=== PATIENT | female | born 1970 | race Caucasian/White ===

== ENCOUNTER 2017-03-08 02:42 | Emergency (ER) | payer OTHER ==
[2017-03-08 03:15] LABS: Urine Bilirubin Negative (NEGATIVE); Urine Blood 250 /ul (NEGATIVE); Urine Ketone Negative (NEGATIVE); Urine Nitrite Negative (NEGATIVE); Urine Protein Negative (NEGATIVE); Urine Urobilinogen Normal (NORMAL)
[2017-03-08] MEDS ORDERED: NORMAL SALINE 1,000 ML IV ONE ×2 (03:16→03:30)
[2017-03-08] MEDS ORDERED: HYDROmorphone HCL 1 MG/ML DISP.SYRIN IV ONE ×3 (03:16→06:07)
[2017-03-08] MEDS ORDERED: ONDANSETRON HCL/PF 2 MG/ML VIAL IV ONE (03:16)
--- NOTE | 2017-03-08 03:20 | ERNOTE ---
ER Female HPI Date of Service: 03/08/17 Stated Complaint: KIDNEY STONE Time Seen by Provider: 03/08/17 03:10 Source: patient Immunizations: IMMUNIZATION HX Immunizations Up to Date Yes History of Influenza Vaccine No Hx Pneumococcal Vaccination No Allergies/Adverse Reactions: Allergies haloperidol [From Haldol] Allergy (Intermediate, Verified 03/08/17 03:02) Other ketorolac [From Toradol] Allergy (Intermediate, Verified 03/08/17 03:02) Other meperidine [From Demerol] Allergy (Intermediate, Verified 03/08/17 03:02) Other metoclopramide [From Reglan] Allergy (Intermediate, Verified 03/08/17 03:02) Other nalbuphine [From Nubain] Allergy (Intermediate, Verified 03/08/17 03:02) Other prochlorperazine [From Compazine] Allergy (Intermediate, Verified 03/08/17 03:02 ) Other promethazine [From Phenergan] Allergy (Intermediate, Verified 03/08/17 03:02) Other tramadol Allergy (Intermediate, Verified 03/08/17 03:02) Other Home Medications: HOME MEDICATIONS Clonazepam 1 mg PO TID PRN 03/08/17 [Last Taken Unknown] Gabapentin 100 mg PO TID 03/08/17 [Last Taken Unknown] Meloxicam [Mobic] 15 mg PO DAILY 03/08/17 [Last Taken Unknown] Metoprolol Succinate 200 mg PO DAILY 03/08/17 [Last Taken Unknown] Omeprazole 20 mg PO DAILY 03/08/17 [Last Taken Unknown] Ondansetron HCl [Zofran] 4 mg PO PRN PRN 03/08/17 [Last Taken Unknown] Oxybutynin Chloride [Ditropan Xl] 15 mg PO DAILY 03/08/17 [Last Taken Unknown] Tamsulosin HCl [Flomax] 0.4 mg PO DAILY 03/08/17 [Last Taken Unknown] Venlafaxine HCl [Venlafaxine HCl ER] 37.5 mg PO HS 03/08/17 [Last Taken Unknown] - History of Present Illness Narrative: This is a 46-year-old female who says that she has a long history of kidney stones. She claims to have had more than 40 lithotripsy's. She is coming in complaining of left pelvic pain which has been going on since yesterday. He got much worse this morning. The patient says she's been having blood in her urine. She says this feels just like previous kidney stones. She denies having a fever. She says that she has not been drinking as much recently because she had a sore throat. She thinks that she has gotten a little dehydrated and this is responsible for the stones. The patient says that she does not take oral pain medicine. She says she vomits with that every time, even if she gets an antiemetic. Review of Systems - Review of Systems Constitutional: Present: no symptoms reported EYE: Present: no symptoms reported ENT: Present: no symptoms reported Respiratory: Present: no symptoms reported Cardiology: Present: no symptoms reported Gastrointestinal/Abdominal: Present: no symptoms reported Genitourinary: Present: hematuria Musculoskeletal: Present: no symptoms reported Skin: Present: no symptoms reported Neurological: Present: no symptoms reported Endocrine: Present: no symptoms reported Hematologic/Lymphatic: Present: no symptoms reported Psych: Present: no symptoms reported - Patient's Past Medical History Patient History - Medical: Kidney stone Patient History - Cardiac/Respiratory: Hypertension Patient History - Cancer: No Hx of Cancer Patient History - Surgical Procedures: Cholecystectomy, , Other Patient History - Other: None LMP (females 10-50): Menopausal - Social History Living Situations: home Abuse History: No History of abuse Psych History: No pertinent hx Smoking Status: Current every day smoker Have you smoked in the past 12 months: Yes Do you dip or chew tobacco: No Alcohol Use: none Drug Use: none - Immunizations Immunizations Up to Date: Yes Hx Pneumococcal Vaccination: No History of Influenza Vaccine: No Physical Exam - Physical Exam General Appearance: Present: wd/wn, alert, no apparent distress Head Exam: Present: normal inspection, no evidence of injury Eye Exam: Normal inspection: bilateral, PERRL: bilateral, EOMI: bilateral Ears, Nose, Throat: Present: normal ENT inspection, other - the oral pharynx is erythematous with mild tonsillar hypertrophy. I do not see any tonsillar exudate Neck: Present: normal inspection, nontender, other - no adenopathy Respiratory: Present: no respiratory distress, normal breath sounds, lungs clear Cardiovascular/Chest: Present: regular rate, rhythm, no murmur, other - borderline tachycardic rate around 100 Gastrointestinal/Abdominal: Present: nondistended, soft, no organomegaly, other - patient has some mild discomfort deep in the left lower quadrant. No rebound or guarding Back Exam: Present: normal inspection, normal range of motion, no CVA tenderness Extremity Exam: Present: normal inspection, non-tender, no edema Neurological Exam: Present: alert, oriented, normal mood/affect Skin Exam: Present: normal color, warm/dry Lymphatic Exam: Present: no adenopathy ED Progress - Results and Orders Patient's Lab Results:: I have reviewed the patient's lab results. - Vital Signs Patient's Vital Signs:: I have reviewed the patient's vital signs. Vital Signs: Vital Signs 03/08/17 03/08/17 02:51 03:08 Temperature 36.4 C L Pulse Rate 106 H 104 H Respiratory 15 Rate Blood Pressure 150/105 O2 Sat by Pulse 100 96 Oximetry - Progress/Reassessment Chief Complaint: Urinary Tract Problems Plan - Plan Plan: This woman is an extensive history of kidney stones. She says she's had more than 40 lithotripsies. She says her last CAT scan was a month ago. I think if we can avoid further Scanning it would be appropriate. She says when the stone get down into her pelvis to usually pass. If her urine shows blood without signs of infection I would feel comfortable avoiding a CAT scan here this evening. She understands that this is a small risk. She understands that she' ll need to follow-up with a urologist to ensure that the stone is passed The patient does have significant blood in her urine. Her clinical story coupled with this makes me comfortable saying she has ureteral colic. I do not believe CAT scan is indicated. She is going to get 2 L of saline as she has not been keeping a lot of fluid down recently due to her sore throat. We will control her pain here. The patient says she does not want medicine to go home with because she can never take it. She is aware she needs to follow up with her urologist. He will come back for new concerning symptoms. Departure Clinical Impression: Kidney stones - Departure Disposition: Home self-care Condition: Good Instructions: Kidney Stones, [id number] Additional Instructions: As we discussed I do believe you have a kidney stone tonight. I have not performed a CAT scan as you have had an excessive number of these. It is my hope that the kidney stone will pass by the time he wake up. I have given you a couple bags of fluid here to help with dehydration. I want you to call your urologist and set up a follow-up appointment. Return for new worrisome symptoms
[2017-03-08 03:24] LABS: Urine Appearance Slightly Cloudy; Urine Bacteria None Seen; Urine Color Red; Urine Mucus Few - 1+; Urine RBC 25-50 /hpf (0-5); Urine WBC 0-5 /hpf (0-5)
[2017-03-08] MEDS ORDERED: ONDANSETRON HCL/PF 2 MG/ML VIAL ONE (03:49)
[2017-03-08] MEDS ORDERED: HYDROmorphone HCL 1 MG/ML DISP.SYRIN ONE ×3 (03:49→06:07)
[2017-03-08 04:04] LABS: Anion Gap 13.8 mmol/L (6.8-13.8); BUN/Creatinine Ratio 7.9 (9.0-21.6); Calcium * 9.5 mg/dL (7.9-10.9); Carbon Dioxide 25.6 mmol/L (24-32.6); Estimated Creat Clear 81.6; Potassium 3.4 mmol/L (3.4-4.6)
[2017-03-08 06:19] VITALS: BP 129/82
== END 2017-03-08 06:45 | disposition home or self-care (01) ==
LOC: ER 02:42
DX: N20.0 Calculus of kidney (principal); I10 Essential (primary) hypertension; F17.200 Nicotine dependence, unspecified, uncomplicated
CPT/HCPCS: 36415; 80048; 81001; 96374; 96375; 99284; J2405